=== PATIENT | male | born 1940 | race Caucasian/White ===

== ENCOUNTER 2024-12-04 13:52 | Outpatient (CLI) | payer BC | END 2024-12-04 13:53 | disposition home or self-care (01) | LOC: RAD 13:52 | PROVIDERS: ATTEND Internal Medicine | DX: R06.00 Dyspnea, unspecified (principal) | CPT/HCPCS: 71046 ==

== ENCOUNTER 2024-12-08 14:21 | Outpatient (CLI) | payer BC | END 2024-12-08 14:22 | disposition home or self-care (01) | LOC: BICULT 14:21 → ULT 14:22 | PROVIDERS: ATTEND Internal Medicine Nephrology | DX: N18.9 Chronic kidney disease, unspecified (principal) | CPT/HCPCS: 76770 ==

== ENCOUNTER 2024-12-10 09:37 | Outpatient (CLI) | payer BC | END 2024-12-10 09:38 | disposition home or self-care (01) | LOC: SCSRAD 09:37 | PROVIDERS: ATTEND Family Medicine | DX: R06.00 Dyspnea, unspecified (principal); I70.0 Atherosclerosis of aorta; I71.012 Dissection of descending thoracic aorta | CPT/HCPCS: 71046 ==

== ENCOUNTER 2025-01-13 16:32 | Inpatient (IN) | payer MEDICARE, BC ==
[2025-01-13 18:19] LABS: #Basophils 0.07 10x3/uL (0.0-0.2); %Basophils 0.6 % (0.0-1.0); %Eosinophils 1.6 % (0.0-10.0); %Monocytes 8.1 % (0.0-10.0); %Neutrophils 81.7 % (42.0-75.0); Hematocrit 36.8 % (42.0-52.0); Hemoglobin 12.5 g/dL (14.0-18.0); Mean Corpuscular Hemoglobin 33.3 pg (27.0-31.0); Mean Corpuscular Volume 98.1 fL (78.0-98.0); Platelet Count 262 10x3/uL (130-400); RBC Distribution Width 12.9 % (11.5-14.5); Red Blood Cell (RBC) Count 3.75 mill/uL (4.70-6.10)
[2025-01-13 18:33] LABS: ALT (SGPT) 11 U/L (Less than 45); AST (SGOT) 13 U/L (11-34); Albumin 3.6 g/dL (3.1-4.5); Alkaline Phosphatase 134 U/L (40-110); Anion Gap 18 mmol/L (10-20); BUN (Urea Nitrogen) 77 mg/dL (8.4-25.7); Bilirubin, Total 0.5 mg/dL (0.3-1.2); Calc. Creatinine Clearance 0 mL/min (70-130); Calcium 9.1 mg/dL (7.8-10.44); Carbon Dioxide 14 mmol/L (23-31); Chloride 111 mmol/L (98-107); Estimated GFR 6; Globulin 3.3 g/dL (2.4-3.5); Glucose 104 mg/dL (83-110); Lipase 39 U/L (8-78); Magnesium 2.1 mg/dL (1.6-2.6); Potassium 5.4 mmol/L (3.5-5.1); Protein, Total 6.9 g/dL (5.8-8.1); Sodium 138 mmol/L (136-145)
[2025-01-13] MEDS ORDERED: Sodium Bicarbonate 150 mEq in Dextrose 5% IV SCH (19:15)
[2025-01-13] MEDS ORDERED: Ondansetron ODT 4 MG TAB PO PRN (19:43)
[2025-01-13] MEDS ORDERED: Ondansetron PF 4 MG/2 ML Vial IVP PRN (19:43)
[2025-01-13] MEDS ORDERED: Acetaminophen 325 MG TAB PO PRN (19:44)
[2025-01-13] MEDS ORDERED: traMADol HCl 50 MG TAB PO PRN ×2 (20:38→22:34)
[2025-01-13] MEDS ORDERED: hydrALAZINE 25 MG TAB PO PRN (22:13)
[2025-01-13 22:19] VITALS: BMI 18.4
[2025-01-13] MEDS: Sodium Bicarbonate 150 MEQ in Dextrose 5% in Water 1,000 ML IV SCH (22:21)
[2025-01-13] MEDS: LOKELMA 10 GM PACKET PO SCH (22:34)
[2025-01-13] MEDS ORDERED: Albuterol 200 PUFF (6.7GM INHALER) INH PRN (22:47)
[2025-01-13] MEDS: Theophylline 300 MG ER.TAB PO SCH (23:03)
[2025-01-14 05:24] LABS: #Basophils 0.07 10x3/uL (0.0-0.2); %Basophils 0.7 % (0.0-1.0); %Eosinophils 3.7 % (0.0-10.0); %Lymphocytes 11.2 % (21.0-51.0); %Monocytes 9.4 % (0.0-10.0); %Neutrophils 74.1 % (42.0-75.0); Hematocrit 29.6 % (42.0-52.0); Hemoglobin 10.3 g/dL (14.0-18.0); Mean Corpuscular HGB CONC 34.8 g/dL (32.0-36.0); Mean Corpuscular Hemoglobin 33.7 pg (27.0-31.0); Mean Corpuscular Volume 96.7 fL (78.0-98.0); Mean Platelet Volume 10.5 fL (7.4-10.4); Platelet Count 213 10x3/uL (130-400); RBC Distribution Width 12.9 % (11.5-14.5); Red Blood Cell (RBC) Count 3.06 mill/uL (4.70-6.10)
[2025-01-14 05:46] LABS: ALT (SGPT) 8 U/L (Less than 45); AST (SGOT) 10 U/L (11-34); Albumin 2.8 g/dL (3.1-4.5); Alkaline Phosphatase 112 U/L (40-110); Anion Gap 17 mmol/L (10-20); BUN (Urea Nitrogen) 82 mg/dL (8.4-25.7); Bilirubin, Total 0.3 mg/dL (0.3-1.2); Calc. Creatinine Clearance 6 mL/min (70-130); Calcium 8.1 mg/dL (7.8-10.44); Carbon Dioxide 18 mmol/L (23-31); Chloride 113 mmol/L (98-107); Estimated GFR 6; Globulin 2.4 g/dL (2.4-3.5); Glucose 98 mg/dL (83-110); Potassium 4.5 mmol/L (3.5-5.1); Protein, Total 5.2 g/dL (5.8-8.1); Sodium 143 mmol/L (136-145)
[2025-01-14 05:54] LABS: HBSAB Concentration Less than 8.00 mIU/mL; HBsAg Index 0.28 S/CO (0-0.99); Hep B Core Total Ab NONREACTIVE (NonReactive); Hep B Core Total Index 0.15 S/CO (0-0.79); Hep B Surf AB NONREACTIVE (NonReactive); Hep B Surf Ag NONREACTIVE S/CO (NonReactive); Hep C IgG Ab NONREACTIVE S/CO (NonReactive)
[2025-01-14] MEDS: Mometasone 200 MCG/Formoterol 5 MCG 120 PUFF INHALER INH SCH (07:11)
[2025-01-14] MEDS ORDERED: Enoxaparin 40 MG (0.4 mL) SYRINGE SC SCH (09:00)
[2025-01-14] MEDS ORDERED: Heparin 5,000 UNITS/ML VIAL SC SCH (09:00)
[2025-01-14] MEDS ORDERED: Heparin 10,000 UNITS/ 10 ML VIAL ONE (09:53)
[2025-01-14] MEDS: Clopidogrel Bisulfate 75 MG TAB PO SCH (10:07)
[2025-01-14] MEDS: Theophylline 300 MG ER.TAB PO SCH (10:07)
[2025-01-14] MEDS: Pantoprazole 40 MG DR.TAB PO SCH (10:07)
[2025-01-14] MEDS: Verapamil 180 MG ER.TAB PO SCH (10:08)
[2025-01-14] MEDS ORDERED: Lidocaine 2% PF 5 ML VIAL ONE (11:53)
[2025-01-14] MEDS ORDERED: Bupivacaine PF 0.5% 30 ML VIAL ONE (11:53)
[2025-01-14] MEDS ORDERED: EPINEPHrine 1 MG/ML VIAL ONE (11:53)
[2025-01-14] MEDS ORDERED: CEFAZOLIN 2 GM VIAL ONE (12:04)
[2025-01-14] MEDS ORDERED: Labetalol HCl 100 MG/20 ML VIAL ONE (12:15)
[2025-01-14] MEDS: Tuberculin PPD 0.1 ML SYRINGE (10 TEST VIAL) I-DERMAL SCH (17:42)
[2025-01-14] MEDS: Amiodarone 200 MG TAB PO SCH (20:57)
[2025-01-15 08:36] LABS: #Basophils 0.08 10x3/uL (0.0-0.2); %Basophils 0.7 % (0.0-1.0); %Eosinophils 2.1 % (0.0-10.0); %Lymphocytes 8.1 % (21.0-51.0); %Monocytes 10.8 % (0.0-10.0); %Neutrophils 77.6 % (42.0-75.0); Hemoglobin 11.2 g/dL (14.0-18.0); Mean Corpuscular HGB CONC 33.9 g/dL (32.0-36.0); Mean Corpuscular Hemoglobin 33.3 pg (27.0-31.0); Mean Corpuscular Volume 98.2 fL (78.0-98.0); Mean Platelet Volume 10.4 fL (7.4-10.4); Platelet Count 219 10x3/uL (130-400); RBC Distribution Width 12.8 % (11.5-14.5); Red Blood Cell (RBC) Count 3.36 mill/uL (4.70-6.10)
[2025-01-15 08:51] LABS: Anion Gap 16 mmol/L (10-20); BUN (Urea Nitrogen) 55 mg/dL (8.4-25.7); Calc. Creatinine Clearance 7 mL/min (70-130); Calcium 8.2 mg/dL (7.8-10.44); Carbon Dioxide 23 mmol/L (23-31); Chloride 106 mmol/L (98-107); Estimated GFR 8; Glucose 83 mg/dL (83-110); Potassium 4.3 mmol/L (3.5-5.1); Sodium 141 mmol/L (136-145)
[2025-01-15] MEDS ORDERED: Heparin 10,000 UNITS/ 10 ML VIAL ONE ×2 (09:45→18:06)
[2025-01-15 11:13] VITALS: BMI 18.4
[2025-01-15] MEDS ORDERED: Bupivacaine PF 0.5% 30 ML VIAL ONE ×2 (18:06→20:37)
[2025-01-15] MEDS ORDERED: EPINEPHrine 1 MG/ML VIAL ONE (18:06)
[2025-01-15] MEDS ORDERED: Lidocaine 2% PF 5 ML VIAL ONE (18:07)
[2025-01-15] MEDS ORDERED: Lidocaine 2% 6 ML (Jelly) SYR ONE (20:13)
[2025-01-15] MEDS ORDERED: PROPOFOL 20 ML ONE (20:13)
[2025-01-15] MEDS ORDERED: fentaNYL 50 mcg/mL 1 mL Vial ONE (20:13)
[2025-01-15] MEDS ORDERED: CEFAZOLIN 2 GM VIAL ONE (20:19)
[2025-01-15] MEDS ORDERED: Sodium Chloride 0.9% 250 ML 250 ML ONE (20:20)
[2025-01-15] MEDS ORDERED: Lidocaine 1% PF 5 ML VIAL ONE (20:23)
[2025-01-15] MEDS ORDERED: CEFAZOLIN 1 GM VIAL ONE (20:25)
[2025-01-15] MEDS ORDERED: Midazolam HCl 2 mg/2 ml Vial ONE (20:28)
[2025-01-16 05:25] LABS: Anion Gap 16 mmol/L (10-20); BUN (Urea Nitrogen) 55 mg/dL (8.4-25.7); Calc. Creatinine Clearance 7 mL/min (70-130); Carbon Dioxide 22 mmol/L (23-31); Chloride 109 mmol/L (98-107); Estimated GFR 8; Glucose 112 mg/dL (83-110); Potassium 4.5 mmol/L (3.5-5.1); Sodium 142 mmol/L (136-145)
[2025-01-16] MEDS ORDERED: tiZANidine HCl 4 MG TAB PO PRN (08:56)
[2025-01-17 05:06] LABS: #Basophils 0.06 10x3/uL (0.0-0.2); %Basophils 0.6 % (0.0-1.0); %Eosinophils 3.2 % (0.0-10.0); %Lymphocytes 10.7 % (21.0-51.0); %Monocytes 13.5 % (0.0-10.0); %Neutrophils 70.9 % (42.0-75.0); Hematocrit 30.5 % (42.0-52.0); Hemoglobin 10.1 g/dL (14.0-18.0); Mean Corpuscular HGB CONC 33.1 g/dL (32.0-36.0); Mean Corpuscular Volume 99.7 fL (78.0-98.0); Mean Platelet Volume 10.5 fL (7.4-10.4); Platelet Count 175 10x3/uL (130-400); RBC Distribution Width 12.5 % (11.5-14.5); Red Blood Cell (RBC) Count 3.06 mill/uL (4.70-6.10)
[2025-01-17 05:23] LABS: Anion Gap 13 mmol/L (10-20); BUN (Urea Nitrogen) 31 mg/dL (8.4-25.7); Calc. Creatinine Clearance 10 mL/min (70-130); Calcium 8.3 mg/dL (7.8-10.44); Carbon Dioxide 27 mmol/L (23-31); Chloride 102 mmol/L (98-107); Estimated GFR 13; Glucose 94 mg/dL (83-110); Potassium 4.3 mmol/L (3.5-5.1); Sodium 138 mmol/L (136-145)
[2025-01-17 08:25] VITALS: BP 161/93; TEMP 98
== END 2025-01-17 12:10 | disposition home health service (06) | DRG 674 ==
LOC: ERS 16:32 → T4-A 19:26 → INTOOBSV 19:26 → OBSVTOIN 01-14 13:54
PROVIDERS: ADMIT Internal Medicine; ATTEND Internal Medicine
PROC: 0JH60XZ Insertion of Tunneled Vascular Access Device into Chest Subcutaneous Tissue and Fascia, Open Approach (ICD-10-PCS; principal; 2025-01-14)
PROC: 02HV33Z Insertion of Infusion Device into Superior Vena Cava, Percutaneous Approach (ICD-10-PCS; 2025-01-14)
PROC: B5181ZA Fluoroscopy of Superior Vena Cava using Low Osmolar Contrast, Guidance (ICD-10-PCS; 2025-01-14)
PROC: 5A1D70Z Performance of Urinary Filtration, Intermittent, Less than 6 Hours Per Day (ICD-10-PCS; 2025-01-14)
PROC: 0J2SXYZ Change Other Device in Head and Neck Subcutaneous Tissue and Fascia, External Approach (ICD-10-PCS; 2025-01-15)
PROC: 3E033XZ Introduction of Vasopressor into Peripheral Vein, Percutaneous Approach (ICD-10-PCS; 2025-01-15)
DX: N17.9 Acute kidney failure, unspecified (principal); E87.20 Acidosis, unspecified; I12.0 Hypertensive chronic kidney disease with stage 5 chronic kidney disease or end stage renal disease; T82.49XA Other complication of vascular dialysis catheter, initial encounter; I25.10 Atherosclerotic heart disease of native coronary artery without angina pectoris; J44.9 Chronic obstructive pulmonary disease, unspecified; I44.7 Left bundle-branch block, unspecified; F17.210 Nicotine dependence, cigarettes, uncomplicated; I73.9 Peripheral vascular disease, unspecified; I48.91 Unspecified atrial fibrillation; N18.6 End stage renal disease; Z99.2 Dependence on renal dialysis; G47.33 Obstructive sleep apnea (adult) (pediatric); D63.1 Anemia in chronic kidney disease
CPT/HCPCS: 36415; 71045; 80048; 80053; 80198; 83690; 83735; 85025; 86580; 86704; 86706; 86803; 87340; 93005; 96361; 96365; A6258; C1713; C1750; C1769; J0171; J0665; J0690; J1642; J1644; J2250; J2704; J3010; J7050; J7070